=== PATIENT | female | born 1950 | race Caucasian/White ===

== ENCOUNTER → 2016-09-13 | Outpatient (CLI) | payer MEDICARE | LOC: LAB 10:06 | PROVIDERS: Internal Medicine Nephrology | DX: R80.9 Proteinuria, unspecified (principal) | CPT/HCPCS: 36415; 80053; 82570; 84156 ==

== ENCOUNTER → 2016-11-17 | Outpatient (CLI) | payer MEDICARE ==
[2016-11-17 15:42] LABS: HEMOGLOBIN 12.9 gm/dl (12.3-15.3); RED BLOOD COUNT 4.65 M/UL (4.00-5.10); WHITE BLOOD COUNT 7.6 K/UL (4.5-11.0)
[2016-11-17 16:05] LABS: BUN/CREATININE RATIO 30 (0-10)
== END ==
LOC: LAB 14:30
PROVIDERS: Family Medicine
DX: E11.9 Type 2 diabetes mellitus without complications (principal); E55.9 Vitamin D deficiency, unspecified; E78.5 Hyperlipidemia, unspecified; I10 Essential (primary) hypertension
CPT/HCPCS: 36415; 80053; 80061; 82043; 83036; 84439; 84443; 84681; 85027

== ENCOUNTER → 2020-08-13 | Outpatient (CLI) | payer MEDICARE ==
[~2020-08-13] MED LIST: ACTOS TAB 15MG15 MG PO; ACTOS45 MG PO; AZO BLADDER CONTROL PO; CEFTIN250 MG/5 M PO; CEFUROXIME500 MG PO; CENTRUM SILVER1 EAC4 PO; CLARITIN10 MG PO; CLONAZEPAM0.5 MG PO; COMBIGAN EYE DRO5 ML EYEBOTH; COZAAR50 MG PO; CYMBALTA60 MG PO; DUREZOL5 ML OP; ESTRACE1 MG PO; FLONASE 0.05% N16 GM; FORTAMET1000 MG PO; GLUCOPHAGE1000 MG PO; HUMULIN R100 UNITS/ SC; HYDROCHLOROTHIA25 MG PO; KLONOPIN TAB 00.5 MG PO; LANTUS100 UNIT/1 SQ; LOPRESSOR50 MG PO; NEURONTIN 400400 MG PO; NORCO 10-325 T1 EACH PO; NOVOLIN R100 UNIT/1 SQ; OMEPRAZOLE20 MG PO; RISPERDAL0.25 MG PO; TRESIBA SQ; TRICOR145 MG PO; TYLENOL 500 MG500 MG PO; VESICARE10 MG PO; VITAMIN D250000 UNIT PO
[2020-08-13 14:59] LABS: HEMOGLOBIN 12.9 gm/dl (12.3-15.3); RED BLOOD COUNT 4.65 M/UL (4.00-5.10); WHITE BLOOD COUNT 10.1 K/UL (4.5-11.0)
[2020-08-13 15:22] LABS: BUN/CREATININE RATIO 40 (0-10); GAMMA GLUTAMYL TRANSPEPTIDASE 16 U/L (7-64)
== END ==
LOC: LAB 13:17
PROVIDERS: Internal Medicine Hospice and Palliative Medicine
DX: Z51.81 Encounter for therapeutic drug level monitoring (principal); F11.20 Opioid dependence, uncomplicated; Z79.899 Other long term (current) drug therapy
CPT/HCPCS: 36415; 80053; 82977; 85025

== ENCOUNTER → 2021-01-24 | Outpatient (CLI) | payer MEDICARE ==
[2021-01-24 15:27] LABS: HEMOGLOBIN 13.1 gm/dl (12.3-15.3); RED BLOOD COUNT 4.67 M/UL (4.00-5.10); WHITE BLOOD COUNT 8.5 K/UL (4.5-11.0)
[2021-01-25 08:14] LABS: VITAMIN D, 25-HYDROXY 43.1 ng/mL (30.0-100.0)
[2021-01-25 10:14] LABS: C-PEPTIDE, SERUM 2.9 ng/mL (1.1-4.4)
== END ==
LOC: LAB 14:35
PROVIDERS: Family Medicine
DX: E11.9 Type 2 diabetes mellitus without complications (principal); E78.5 Hyperlipidemia, unspecified; I10 Essential (primary) hypertension; E55.9 Vitamin D deficiency, unspecified
CPT/HCPCS: 36415; 80053; 80061; 82043; 84439; 84443; 84681; 85027

== ENCOUNTER → 2021-10-11 | Outpatient (CLI) | payer MEDICARE ==
[2021-10-11 15:27] LABS: BUN/CREATININE RATIO 30 (0-10)
== END ==
LOC: LAB 14:19
PROVIDERS: Nurse Practitioner Family
DX: F11.20 Opioid dependence, uncomplicated (principal); Z79.899 Other long term (current) drug therapy
CPT/HCPCS: 36415; 80053

== ENCOUNTER → 2022-02-20 | Outpatient (CLI) | payer MEDICARE ==
[2022-02-20 17:30] LABS: HEMOGLOBIN 13.1 gm/dl (12.3-15.3); RED BLOOD COUNT 4.84 M/UL (4.00-5.10)
[2022-02-20 17:56] LABS: BUN/CREATININE RATIO 35 (0-10)
[2022-02-22 12:14] LABS: CREATININE, URINE 61.2 mg/dL (Not Estab.)
== END ==
LOC: LAB 16:11
PROVIDERS: Family Medicine
DX: E11.9 Type 2 diabetes mellitus without complications (principal); I10 Essential (primary) hypertension; Z79.899 Other long term (current) drug therapy
CPT/HCPCS: 36415; 80053; 80061; 80307; 82043; 82570; 82607; 83735; 85027